=== PATIENT | female | born 1975 | race Caucasian/White ===

== ENCOUNTER 2017-05-19 17:49 | Emergency (ER) | payer OTHER ==
[~2017-05-19] VITALS: Ht 162.6 cm; Wt 66.4 kg
[2017-05-19] MEDS ORDERED: LEVO125T4 PO (18:01)
[2017-05-19] MEDS ORDERED: B121000T PO (18:01)
--- NOTE | 2017-05-19 20:03 | REP ---
Clinical: Swelling . Technique: AP, lateral, bilateral oblique views right foot . Findings: The osseous structures and joint spaces are intact and normal. There is no evidence for acute fracture or dislocation. Surrounding soft tissues are unremarkable. No subcutaneous emphysema or radiodense foreign body. Impression: Normal right foot radiographs. No acute fracture or dislocation. Signed by Kj Martinez MD 05/19/2017 07:54 P
[2017-05-19] MEDS ORDERED: IBUP-1022 PO (20:06)
[2017-05-19 20:13] VITALS: BP 122/90
== END 2017-05-19 20:51 | disposition home or self-care (01) ==
LOC: M ED 17:49
DX: S96.211A Strain of intrinsic muscle and tendon at ankle and foot level, right foot, initial encounter (principal); X58.XXXA Exposure to other specified factors, initial encounter; Y92.89 Other specified places as the place of occurrence of the external cause; Y93.89 Activity, other specified; Y99.8 Other external cause status; E07.9 Disorder of thyroid, unspecified; Z79.899 Other long term (current) drug therapy